=== PATIENT | female | born 1935 | race Caucasian/White ===

== ENCOUNTER → 2017-10-13 | Outpatient (CLI) | payer MEDICARE, OTHER ==
[~2017-10-13] MED LIST: CARAFATE1 GM PO; LISINOPRIL10 MG PO; MELATONIN3 MG PO; OMEPRAZOLE40 MG PO; SIMVASTATIN40 MG PO; TOPROL XL25 MG PO
--- NOTE | 2017-10-13 12:13 | Diagnostic Imaging Report ---
PROCEDURE: X-RAY CHEST, TWO VIEWS COMPARISON: 04/22/2008. INDICATIONS: CHEST PAIN FINDINGS: The lungs are well-inflated. No focal consolidation, pleural effusion, or pneumothorax. Cardiomediastinal contour is notable for tortuosity and atherosclerotic calcification of the thoracic aorta, with a normal heart size. No pulmonary edema. No acute osseous abnormality. CONCLUSION: No acute cardiopulmonary abnormality. Dictated by: Khoa Cruz M.D. on 10/13/2017 at 12:17 Electronically approved by: Khoa Cruz M.D. on 10/13/2017 at 12:17
--- NOTE | 2017-10-13 16:08 | Diagnostic Imaging Report ---
Ventilation/perfusion lung scan Clinical Information: 82 F with pleuritic chest pain x 2 weeks Comparison: Chest radiograph 10/13/2017 Discussion: Xenon-133 gas 9.2 mCi was administered via inhalation. Dynamic images of the lungs in the posterior projection were obtained through single breath, equilibrium, and washout phases. Distribution of tracer activity is irregular throughout the lungs. There are no segmental ventilatory defects. Washout of tracer is diffusely delayed with bibasilar air trapping. Perfusion images of the lungs were obtained in multiple projections following intravenous administration of approximately 6.0 mCi of Tc-99m MAA. Distribution of tracer is irregular throughout the lungs. The contours of the lungs are well demarcated. There are no segmental perfusion defects of any size. The cardiomediastinal silhouette is unremarkable. Impression: Scan findings represent a VERY LOW probability for acute pulmonary embolic disease based on the PIOPED II criteria. Scan evidence of diffuse parenchymal and or obstructive lung disease. Signed by: Dr. Marisela Cee M.D. on 10/13/2017 4:04 PM
== END ==
LOC: NM 11:11
PROVIDERS: ATTEND Internal Medicine
DX: R07.81 Pleurodynia (principal)
CPT/HCPCS: 71046; 78582; A9540; A9558

== ENCOUNTER 2020-05-16 11:00 | Outpatient (RCR) | payer MEDICARE, OTHER | END 2020-05-18 | LOC: PT 11:00 | PROVIDERS: ATTEND Specialist | DX: M71.551 Other bursitis, not elsewhere classified, right hip (principal); M62.81 Muscle weakness (generalized); R26.89 Other abnormalities of gait and mobility ==

== ENCOUNTER 2020-05-23 11:00 | Outpatient (RCR) | payer MEDICARE, OTHER | END 2020-06-15 | LOC: PT 11:00 | PROVIDERS: ATTEND Specialist | DX: M70.71 Other bursitis of hip, right hip (principal); M62.81 Muscle weakness (generalized); R26.89 Other abnormalities of gait and mobility | CPT/HCPCS: 97139 ==

== ENCOUNTER → 2020-06-20 | Outpatient (CLI) | payer MEDICARE, OTHER | LOC: RAD 10:44 | PROVIDERS: ATTEND Internal Medicine | DX: M25.551 Pain in right hip (principal) ==